=== PATIENT | female | born 1960 | race Caucasian/White ===

== ENCOUNTER 2017-04-26 11:41 | Inpatient (IN) | payer OTHER ==
[2017-04-26] VITALS (8 sets, daily range): BP systolic 103–183; BP diastolic 65–109; PULSE 70–104; RESP 15–18; TEMP 96.5–97.7; O2SAT 96–100
[~2017-04-26 11:41] MED LIST: DARV PO; ROSU40 PO; Z.0.NO CURRENT MEDS
[2017-04-26] MEDS ORDERED: MORPHINE SULFATE 8 MG/ML INJ ONE (12:12)
[2017-04-26 12:32] LABS: AUTOMATED NEUTROPHIL # 3.5 TH/MM3 (1.8-7.7); BASOPHIL % 0.5 % (0.0-2.0); EOSINOPHIL # 0.2 TH/MM3 (0-0.4); HEMATOCRIT 42.5 % (35.0-46.0); HEMOGLOBIN 14.4 GM/DL (11.6-15.3); LYMPH % 42.3 % (9.0-44.0); LYMPHOCYTE # 3.1 TH/MM3 (1.0-4.8); MEAN CELL VOLUME 88.9 FL (80.0-100.0); MEAN CORPUSCULAR HEMOGLOBIN 30.2 PG (27.0-34.0); MEAN PLATELET VOLUME 7.5 FL (7.0-11.0); MONO % 7.8 % (0.0-8.0); MONOCYTE # 0.6 TH/MM3 (0-0.9); NEUT % 47.4 % (16.0-70.0); PLATELET COUNT 245 TH/MM3 (150-450); RED BLOOD COUNT 4.78 MIL/MM3 (4.00-5.30); RED CELL DISTRIBUTION WIDTH 13.6 % (11.6-17.2); WHITE BLOOD COUNT 7.4 TH/MM3 (4.0-11.0)
[2017-04-26] MEDS ORDERED: IOHEXOL 350 MG/ML 10 ML VIAL (for RAD DIAG) IVCONTRAST ONE (12:40)
[2017-04-26 12:41] LABS: INTERNATIONAL NORMALIZED RATIO 0.9 RATIO; PROTHROMBIN TIME - PATIENT 9.4 SEC (9.8-11.6)
--- NOTE | 2017-04-26 12:53 | RADRPT ---
EXAM DATE/TIME: 04/26/2017 12:28 [facility] COMPARISON: No previous studies available for comparison. INDICATIONS : Trauma alert, fell through a boat. RADIATION DOSE: 49.50 CTDIvol (mGy) MEDICAL HISTORY : Non-responsive. SURGICAL HISTORY : Non-responsive. ENCOUNTER: Initial ACUITY: 1 day PAIN SCALE: Non-responsive LOCATION: cranial TECHNIQUE: Multiple contiguous axial images were obtained of the head. Using automated exposure control and adj ustment of the mA and/or kV according to patient size, radiation dose was kept as low as reasonably a chievable to obtain optimal diagnostic quality images. DICOM format image data is available electro nically for review and comparison. FINDINGS: CEREBRUM: The ventricles are normal for age. No evidence of midline shift, mass lesion, hemorrhage or acute in farction. No extra-axial fluid collections are seen. POSTERIOR FOSSA: The cerebellum and brainstem are intact. The 4th ventricle is midline. The cerebellopontine angle i s unremarkable. EXTRACRANIAL: The visualized portion of the orbits is intact. SKULL: The calvaria is intact. No evidence of skull fracture. CONCLUSION: 1. No acute intracranial abnormalities. Kristian Damon MD on April 26, 2017 at 12:51 Board Certified Radiologist. This report was verified electronically.
--- NOTE | 2017-04-26 12:55 | RADRPT ---
EXAM DATE/TIME: 04/26/2017 12:28 [facility] COMPARISON: No previous studies available for comparison. INDICATIONS : Trauma alert, fell through a boat. RADIATION DOSE: 15.74 CTDIvol (mGy) MEDICAL HISTORY : Non-responsive. SURGICAL HISTORY : Non-responsive. ENCOUNTER: Initial ACUITY: 1 day PAIN SCALE: Non-responsive LOCATION: neck TECHNIQUE: Volumetric scanning of the cervical spine was performed. Multiplanar reconstructions in the sagittal, coronal and oblique axial planes were performed. Using automated exposure control and adjustment o f the mA and/or kV according to patient size, radiation dose was kept as low as reasonably achievable to obtain optimal diagnostic quality images. DICOM format image data is available electronically f or review and comparison. FINDINGS: No acute fracture. Minimal degenerative anterolisthesis of C4 on C5. Moderate degenerative disease. N o prevertebral soft tissue swelling. No significant canal stenosis. CONCLUSION: 1. No acute findings. Moderate degenerative change. Kristian Damon MD on April 26, 2017 at 12:52 Board Certified Radiologist. This report was verified electronically.
--- NOTE | 2017-04-26 12:57 | RADRPT ---
EXAM DATE/TIME: 04/26/2017 12:35 [facility] COMPARISON: No previous studies available for comparison. INDICATIONS : Trauma alert, fell through a boat. IV CONTRAST: 70 cc Omnipaque 350 (iohexol) IV ; Cumulative dose for multiple exams. ORAL CONTRAST: No oral contrast ingested. RADIATION DOSE: 15.50 CTDIvol (mGy) ; Combined studies - Thorax/Abdomen/Pelvis MEDICAL HISTORY : Non-responsive. SURGICAL HISTORY : Non-responsive. ENCOUNTER: Initial ACUITY: 1 day PAIN SCALE: Non-responsive LOCATION: upper quadrant TECHNIQUE: Volumetric scanning of the abdomen and pelvis was performed. Using automated exposure control and ad justment of the mA and/or kV according to patient size, radiation dose was kept as low as reasonably achievable to obtain optimal diagnostic quality images. DICOM format image data is available electro nically for review and comparison. FINDINGS: LOWER LUNGS: The visualized lower lungs are clear extensive calcified granuloma on the right.. LIVER: Homogeneous density without lesion. There is no dilation of the biliary tree. Previous cholecystecto my. SPLEEN: Normal size without lesion. PANCREAS: Within normal limits. KIDNEYS: Normal in size and shape. There is no mass, stone or hydronephrosis. ADRENAL GLANDS: Within normal limits. VASCULAR: There is no aortic aneurysm. BOWEL/MESENTERY: The stomach, small bowel, and colon demonstrate no acute abnormality. There is no free intraperitone al air or fluid. ABDOMINAL WALL: Within normal limits. RETROPERITONEUM: There is no lymphadenopathy. BLADDER: No wall thickening or mass. REPRODUCTIVE: Within normal limits. INGUINAL: There is no lymphadenopathy or hernia. MUSCULOSKELETAL: Within normal limits for patient age. CONCLUSION: 1. Negative for acute traumatic injury within the abdomen and pelvis. Small hiatal hernia. Cholecyste ctomy. Calcified granuloma right middle lobe. Kristian Damon MD on April 26, 2017 at 12:54 Board Certified Radiologist. This report was verified electronically.
--- NOTE | 2017-04-26 13:03 | RADRPT ---
EXAM DATE/TIME: 04/26/2017 12:35 [facility] COMPARISON: No previous studies available for comparison. INDICATIONS : Trauma alert, fell through a boat. IV CONTRAST: 70 cc Omnipaque 350 (iohexol) IV ; Cumulative dose for multiple exams. RADIATION DOSE: 15.50 CTDIvol (mGy) ; Combined studies - Thorax/Abdomen/Pelvis MEDICAL HISTORY : Non-responsive. SURGICAL HISTORY : Non-responsive. ENCOUNTER: Initial ACUITY: 1 day PAIN SCALE: Non-responsive LOCATION: chest TECHNIQUE: Volumetric scanning of the chest was performed. Using automated exposure control and adjustment of t he mA and/or kV according to patient size, radiation dose was kept as low as reasonably achievable to obtain optimal diagnostic quality images. DICOM format image data is available electronically for review and comparison. Follow-up recommendations for detected pulmonary nodules are based at a minimum on nodule size and pa tient risk factors according to Fleischner Society Guidelines. FINDINGS: Minimal dependent atelectasis in the lungs. Calcified granuloma in the right middle lobe. No pneumoth orax or pleural effusion. No acute bony abnormalities identified. No mediastinal hematoma. No adenopathy. No pericardial effusion. CONCLUSION: 1. No acute findings on thoracic CT. Calcified granuloma right middle lobe. Kristian Damon MD on April 26, 2017 at 12:58 Board Certified Radiologist. This report was verified electronically.
--- NOTE | 2017-04-26 13:04 | RADRPT ---
EXAM DATE/TIME: 04/26/2017 12:09 [facility] COMPARISON: No previous studies available for comparison. INDICATIONS : Trauma. Fall. MEDICAL HISTORY : None. SURGICAL HISTORY : None. ENCOUNTER: Initial ACUITY: 1 day PAIN SCORE: 6/10 LOCATION: Right hip FINDINGS: A single frontal view of the pelvis demonstrates no evidence of fracture. The bony pelvic ring is in tact. Bony mineralization is normal. The soft tissues are intact. CONCLUSION: 1. There is no evidence of acute fracture. Yoel Baez MD on April 26, 2017 at 13:02 Board Certified Radiologist. This report was verified electronically.
--- NOTE | 2017-04-26 13:04 | RADRPT ---
EXAM DATE/TIME: 04/26/2017 12:09 [facility] COMPARISON: No previous studies available for comparison. INDICATIONS : Trauma. Fall. MEDICAL HISTORY : None. SURGICAL HISTORY : None. ENCOUNTER: Initial ACUITY: 1 day PAIN SCORE: 5/10 LOCATION: Right hip FINDINGS: Two view examination of the right femur demonstrates no evidence of fracture or dislocation. Bony mi neralization is normal. The soft tissue structures are intact. CONCLUSION: 1. There is no evidence of acute fracture. Yoel Baez MD on April 26, 2017 at 13:01 Board Certified Radiologist. This report was verified electronically.
--- NOTE | 2017-04-26 13:05 | RADRPT ---
EXAM DATE/TIME: 04/26/2017 12:09 [facility] COMPARISON: No previous studies available for comparison. INDICATIONS : Trauma. Fall. MEDICAL HISTORY : None. SURGICAL HISTORY : None. ENCOUNTER: Initial ACUITY: 1 day PAIN SCORE: 5/10 LOCATION: Right leg FINDINGS: Examination of the tibia and fibula demonstrates no evidence of fracture or dislocation. Bone minera lization is normal. CONCLUSION: 1. There is no evidence of acute fracture. Yoel Baez MD on April 26, 2017 at 13:02 Board Certified Radiologist. This report was verified electronically.
--- NOTE | 2017-04-26 13:12 | RADRPT ---
EXAM DATE/TIME: 04/26/2017 12:09 [facility] COMPARISON: CT THORAX W CONTRAST, April 26, 2017, 12:35. INDICATIONS : Trauma. Fall. MEDICAL HISTORY : None. SURGICAL HISTORY : None. ENCOUNTER: Initial ACUITY: 1 day PAIN SCORE: 2/10 LOCATION: Bilateral chest FINDINGS: There is a calcified granuloma within the right lower lung field. The heart is normal. The pulmonary vascular pattern is normal. The lungs are clear. CONCLUSION: 1. No acute cardiopulmonary disease. 2. Calcified granuloma within the right lower lung field. Edgar Rand MD on April 26, 2017 at 13:08 Board Certified Radiologist. This report was verified electronically.
--- NOTE | 2017-04-26 13:16 | RADRPT ---
EXAM DATE/TIME: 04/26/2017 12:09 [facility] COMPARISON: No previous studies available for comparison. INDICATIONS : Trauma. Fall. MEDICAL HISTORY : None. SURGICAL HISTORY : None. ENCOUNTER: Initial ACUITY: 1 day PAIN SCORE: 5/10 LOCATION: Right leg FINDINGS: Single view right ankle partially obscured by splint shows no fracture. CONCLUSION: Limited no fracture or dislocation. Malcom Hernandez MD FACR on April 26, 2017 at 13:14 Board Certified Radiologist. This report was verified electronically.
--- NOTE | 2017-04-26 13:18 | RADRPT ---
EXAM DATE/TIME: 04/26/2017 12:35 [facility] COMPARISON: No previous studies available for comparison. INDICATIONS : Trauma alert, fell through a boat. IV CONTRAST: 70 cc Omnipaque 350 (iohexol) IV ; Cumulative dose for multiple exams. RADIATION DOSE: ; Reconstructed from previous dataset, no dose MEDICAL HISTORY : Non-responsive. SURGICAL HISTORY : Non-responsive. ENCOUNTER: Initial ACUITY: 1 day PAIN SCALE: Non-responsive LOCATION: Paraspinal TECHNIQUE: Volumetric scanning of the thoracic spine was performed. Multiplanar reconstructions in the sagittal, coronal and oblique axial planes were performed. Using automated exposure control a nd adjustment of the mA and/or kV according to patient size, radiation dose was kept as low as reason ably achievable to obtain optimal diagnostic quality images. DICOM format image data is available el ectronically for review and comparison. FINDINGS: The vertebral bodies of the thoracic spine are in normal alignment without evidence of subluxation. Vertebral body height is maintained. No fractures are seen. Mild scoliosis and degenerative changes are noted. T1-T2: Normal. T2-T3: The thecal sac has a normal diameter. No evidence of disc bulge or protrusion. T3-T4: The thecal sac has a normal diameter. No evidence of disc bulge or protrusion. T4-T5: The thecal sac has a normal diameter. No evidence of disc bulge or protrusion. T5-T6: The thecal sac has a normal diameter. No evidence of disc bulge or protrusion. T6-T7: The thecal sac has a normal diameter. No evidence of disc bulge or protrusion. T7-T8: The thecal sac has a normal diameter. No evidence of disc bulge or protrusion. T8-T9: The thecal sac has a normal diameter. No evidence of disc bulge or protrusion. T9-T10: The thecal sac has a normal diameter. No evidence of disc bulge or protrusion. T10-T11: The thecal sac has a normal diameter. No evidence of disc bulge or protrusion. T11-T12: The thecal sac has a normal diameter. No evidence of disc bulge or protrusion. T12-L1: The thecal sac has a normal diameter. No evidence of disc bulge or protrusion. CONCLUSION: 1. No acute fracture or subluxation. 2. Mild degenerative changes and scoliosis of the thoracic spine. Edgar Rand MD on April 26, 2017 at 13:14 Board Certified Radiologist. This report was verified electronically.
--- NOTE | 2017-04-26 13:25 | RADRPT ---
EXAM DATE/TIME: 04/26/2017 12:35 [facility] COMPARISON: No previous studies available for comparison. INDICATIONS : Trauma alert, fell through a boat. IV CONTRAST: 70 cc Omnipaque 350 (iohexol) IV ; Cumulative dose for multiple exams. RADIATION DOSE: ; Reconstructed from previous dataset, no dose MEDICAL HISTORY : Non-responsive. SURGICAL HISTORY : Non-responsive. ENCOUNTER: Initial ACUITY: 1 day PAIN SCALE: Non-responsive LOCATION: Paraspinal TECHNIQUE: Volumetric scanning of the lumbar spine was performed. Multiplanar reconstructions in the sagittal, coronal and oblique axial planes were performed. Using automated exposure control and adjustment of the mA and/or kV according to patient size, radiation dose was kept as low as reasonably achievable t o obtain optimal diagnostic quality images. DICOM format image data is available electronically for review and comparison. FINDINGS: There is a mild to moderate compression deformity involving the superior endplate of L3 and a mild co mpression from involving the superior endplate of L4 which are indeterminate in ages. MRI of the lumb ar spine would be more sensitive to rule out acute fracture of these vertebral bodies if clinical ind icated. Significant degenerative disc disease is noted at L4-5 and less severe degenerative disc dise ase is noted at L5-S1. Mild spinal stenosis is noted at L3-4. Left-sided laminotomy defects are noted at L4-5 and L5-S1. Moderate bilateral foraminal narrowing is noted at L5-S1 and mild bilateral esdras inal narrowing is noted at L4-5 and L3-4. Minimal scoliosis of the lumbar spine is noted. CONCLUSION: 1. Mild to moderate compression deformity involving the superior endplate of L3 and a mild compressio n from involving the superior endplate of L4 which are indeterminate in ages. MRI of the lumbar spine would be more sensitive to rule out acute fracture of these vertebral bodies if clinical indicated. 2. Mild spinal stenosis at L3-4. 3. Moderate bilateral foraminal narrowing at L5-S1 and mild bilateral foraminal narrowing at L4-5 and L3-4. 4. Degenerative disc disease L4-5 and to a lesser extent at L5-S1. 5. Minimal scoliosis of the lumbar spine. Edgar Rand MD on April 26, 2017 at 13:17 Board Certified Radiologist. This report was verified electronically.
--- NOTE | 2017-04-26 13:45 | PD ---
HPI Chief Complaint: Trauma (Alert) Time Seen by Provider: 12:00 Travel History International Travel<30 days: No Contact w/Intl Traveler<30days: No Traveled to known affect area: No History of Present Illness HPI 56-year-old woman, presents to the emergency department complaining of right sided pain tenderness or weakness after falling several both. She reports that she was working on a boat at her job when she stepped through a piece had been finished. She fell about 6 feet into the boat landing on her right side. She has severe pain from her right back all the way through her right leg. She is unable to move the right leg. She describes inability to feel the right leg. She's had previous back surgeries. She otherwise has been feeling generally well and healthy. Pain is been severe since onset, consistent, without other aggravating or alleviating factors. History Past Medical History Narrative Medical Hyperlipidemia Previous back surgery Social History Alcohol Use: No Tobacco Use: No Allergies-Medications (Allergen,Severity, Reaction): Coded Allergies: codeine (Verified Allergy, Mild, 04/26/17) Reported Meds & Prescriptions Reported Meds & Active Scripts Active No Active Prescriptions or Reported Medications Review of Systems Except as stated in HPI: all other systems reviewed are Neg Physical Exam Narrative GENERAL: 56 year-old woman, full spinal mobilization, appears uncomfortable nontoxic. SKIN: Focused skin assessment warm/dry. HEAD: Atraumatic. Normocephalic. EYES: Pupils equal and round. No scleral icterus. No injection or drainage. ENT: No nasal bleeding or discharge. Mucous membranes pink and moist. NECK: Trachea midline. No JVD. CARDIOVASCULAR: Regular rate and rhythm. No murmur appreciated. RESPIRATORY: No accessory muscle use. Clear to auscultation. Breath sounds equal bilaterally. GASTROINTESTINAL: Abdomen soft, non-tender, nondistended. Hepatic and splenic margins not palpable. MUSCULOSKELETAL: No obvious deformities. On back exam she has pain throughout the lumbar spine and thoracic spine. There is no step-offs deformities or ecchymosis or bruising. She has pain with any attempted range of motion of the entire right leg hip knee and ankle. There is pain to palpation about the knee and thigh. There is no ecchymosis bruising swelling or other deformity. She has palpable pulses distally. She describes significant decrease in sensation throughout the extremity in a nondermatomal distribution. She can wiggle the toes but has either too much weakness or pain to move the leg further. Left legs unremarkable. Upper extremities are unremarkable. She does have mild diffuse myalgia pain with any kind of palpation but no other obvious bony injuries. NEUROLOGICAL: Awake and alert. No obvious cranial nerve deficits. Motor grossly within normal limits. Normal speech. PSYCHIATRIC: Appropriate mood and affect; insight and judgment normal. Data Data Last Documented VS Vital Signs Date Time Temp Pulse Resp B/P (MAP) Pulse Ox O2 Delivery O2 Flow Rate FiO2 04/26/17 12:09 100 21 04/26/17 12:00 104 16 179/109 (132) Room Air Orders Orders Morphine Inj (Morphine Inj) (04/26/17 12:12) I-Stat Profile (04/26/17 12:23) I-Stat Creatinine (04/26/17 12:23) Complete Blood Count With Diff (04/26/17 12:23) Prothrombin Time / Inr (Pt) (04/26/17 12:23) Act Partial Throm Time (Ptt) (04/26/17 12:23) Type And Screen (04/26/17 12:23) Chest, Single Ap (04/26/17 12:23) Pelvis, Ap Only (Routine) (04/26/17 12:23) Ct Brain W/O Iv Contrast(Rout) (04/26/17 12:23) Ct Cerv Spine W/O Contrast (04/26/17 12:23) Ct Abd/Pel W Iv Contrast(Rout) (04/26/17 12:23) Ct Thorax/ Chest W Iv Contrast (04/26/17 12:23) Ct Thor Spine W Iv Contrast (04/26/17 12:23) Ct Lumb Spine W Iv Contrast (04/26/17 12:23) Iv Access Insert/Monitor (04/26/17 12:23) Ecg Monitoring (04/26/17 12:23) Oximetry (04/26/17 12:23) Oxygen Administration (04/26/17 12:23) Femur (Ap & Lat/2vws) (04/26/17 ) Iohexol 350 Inj (Omnipaque 350 Inj) (04/26/17 12:40) Tibia/Fibula, One View (04/26/17 ) Ankle, One View (04/26/17 ) Trauma Office Use Only (04/26/17 12:56) Admit Order (Ed Use Only) (04/26/17 ) Labs Laboratory Tests Test 04/26/17 12:11 White Blood Count 7.4 TH/MM3 Red Blood Count 4.78 MIL/MM3 Hemoglobin 14.4 GM/DL Bedside Hemoglobin 14.3 G/DL Hematocrit 42.5 % Bedside Hematocrit 42.0 % Mean Corpuscular Volume 88.9 FL Mean Corpuscular Hemoglobin 30.2 PG Mean Corpuscular Hemoglobin Concent 34.0 % Red Cell Distribution Width 13.6 % Platelet Count 245 TH/MM3 Mean Platelet Volume 7.5 FL Neutrophils (%) (Auto) 47.4 % Lymphocytes (%) (Auto) 42.3 % Monocytes (%) (Auto) 7.8 % Eosinophils (%) (Auto) 2.0 % Basophils (%) (Auto) 0.5 % Neutrophils # (Auto) 3.5 TH/MM3 Lymphocytes # (Auto) 3.1 TH/MM3 Monocytes # (Auto) 0.6 TH/MM3 Eosinophils # (Auto) 0.2 TH/MM3 Basophils # (Auto) 0.0 TH/MM3 CBC Comment DIFF FINAL Differential Comment Prothrombin Time 9.4 SEC Prothromb Time International Ratio 0.9 RATIO Activated Partial Thromboplast Time 24.2 SEC Bedside Sodium 141 MMOL/L Bedside Potassium 3.2 MMOL/L Bedside Chloride 106 MMOL/L Bedside Blood Urea Nitrogen 14 MG/DL Bedside Creatinine 0.5 MG/DL Bedside Glucose 102 MG/DL [facility] Medical Decision Making Medical Screen Exam Complete: Yes Emergency Medical Condition: Yes Interpretation(s) LABS: CBC unremarkable. Point of care Splenic or chemistries are unremarkable. INR 0.9 X-rays of the femur, tib-fib, ankle in the trauma bay were interpreted a by myself s unremarkable. X-rays of the chest and pelvis were interpreted by myself as unremarkable and the trauma bay. Head CT: Negative. C-spine CT: Negative. Chest CT: Negative Abdomen pelvis CT: Negative. Lumbar spine CT: Mild to moderate compression deformity involving the superior endplate of L3 and a mild compression from the Louise well for which are indeterminate ages. Mild spinal stenosis L3-L4. Moderate bilateral foraminal narrowing at L5-S1 and mild bilateral pulmonary L4-L5. Degenerative disc disease. Minimal scoliosis. Differential Diagnosis Head injury, neck injury, back injury, radiculopathy, leg injury, other Narrative Course Medical decision making 56-year-old woman, upgraded on arrival to level II trauma alert based on her numbness and inability to move her right leg. Initial imaging in the trauma bay does not show any obvious leg injuries. Concern for radicular injury. CT does show suggestion of an L-spine compression fracture, unclear if this is related to the leg or not. The leg does appear vascularly intact with good perfusion and pulses. She somewhat painful throughout from the fall. I spoke with Dr. Navarrete, agrees to admit the patient for observation and for MRI of her back. Diagnosis Primary Impression: Compression fx, lumbar spine Admitting Information Admitting Physician Requests: Observation Scripts No Active Prescriptions or Reported Meds Saroj Fuchs MD Apr 26, 2017 13:45
[2017-04-26] MEDS ORDERED: GADODIAMIDE PF 287 MG/ML 5 ML VIAL (for RAD MRI) IVCONTRAST ONE (13:52)
[2017-04-26] MEDS ORDERED: ENALAPRILAT 1.25 MG/ML VIAL IV PUSH PRN (14:15)
[2017-04-26] MEDS ORDERED: SODIUM CHLORIDE 0.9% FLUSH 10 ML FLUSH IV FLUSH PRN ×2 (14:15)
[2017-04-26] MEDS ORDERED: MAGNESIUM HYDROXIDE SUSP 30 ML CUP PO PRN (14:15)
[2017-04-26] MEDS ORDERED: MISCELLANEOUS NURSING INFORMATION XX SCH ×2 (14:15)
[2017-04-26] MEDS ORDERED: CHLORHEXIDINE GLUCONATE 2 % 1 PACK (2 CLOTHS) TOP PRN (14:15)
[2017-04-26] MEDS ORDERED: KETOROLAC TROMETHAMINE 30 MG/ML (IVP) VIAL IVP PRN (14:15)
--- NOTE | 2017-04-26 14:16 | HHI.HP ---
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 She immediately developed numbness and tingling in her right lower extremity, was unable to ambulate and had lower back pain. She was brought in and underwent a full emergency department workup for an L3-L4 compression fracture was found. Review of Systems Constitutional: DENIES: Diaphoretic episodes, Fatigue, Fever, Weight gain, Weight loss, Chills, Dizziness, Change in appetite, Night Sweats Endocrine: DENIES: Abnorml menstrual pattern, Heat/cold intolerance, Polydipsia , Polyuria, Polyphagia Ears, nose, mouth, throat: DENIES: Tinnitus, Hearing loss, Vertigo, Nasal discharge, Oral lesions, Throat pain, Hoarseness, Ear Pain, Running Nose, Epistaxis, Sinus Pain, Toothache, Odynophagia Respiratory: DENIES: Apneas, Cough, Snoring, Wheezing, Hemoptysis, Sputum production, Shortness of breath Cardiovascular: DENIES: Chest pain, Palpitations, Syncope, Dyspnea on Exertion , PND, Lower Extremity Edema, Orthopnea, Claudication Gastrointestinal: COMPLAINS OF: Abdominal pain (mild epigastric), DENIES: Black stools, Bloody stools, Constipation, Diarrhea, Nausea, Vomiting, Difficulty Swallowing, Anorexia Genitourinary: DENIES: Abnormal vaginal bleeding, Dysmenorrhea, Dyspareunia, Sexual dysfunction, Urinary frequency, Urinary incontinence, Urgency, Hematuria , Dysuria, Nocturia, Vaginal discharge Musculoskeletal: COMPLAINS OF: Joint pain (right hip), Back pain (lumbar) Integumentary: DENIES: Abnormal pigmentation, Pruritus, Rash, Nail changes, Breast masses, Breast skin changes, Nipple discharge Hematologic/lymphatic: DENIES: Bruising, Lymphadenopathy Immunologic/allergic: DENIES: Eczema, Urticaria Neurologic: COMPLAINS OF: Abnormal gait (unable to bear weight on her right leg ) Psychiatric: DENIES: Anxiety, Confusion, Mood changes, Depression, Hallucinations, Agitation, Suicidal Ideation, Homicidal Ideation, Delusions Past Family Social History Allergies: Coded Allergies: codeine (Verified Allergy, Mild, 04/26/17) Past Medical History Patient denies Past Surgical History Laparoscopic cholecystectomy Reported Medications Patient denies Family History Review not relevant Social History Denies alcohol tobacco or drug use Physical Exam Vital Signs Vital Signs Date Time Temp Pulse Resp B/P (MAP) Pulse Ox O2 Delivery O2 Flow Rate FiO2 04/26/17 12:09 100 21 04/26/17 12:00 104 16 179/109 (132) 98 Room Air 04/26/17 11:50 104 18 183/102 (129) 98 Physical Exam Alert and oriented no acute distress Head is atraumatic normocephalic pupils equal round reactive to light extraocular movement intact sclerae nonicteric conjunctiva pink Neck soft, trachea midline no palpable nodes or masses Lungs clear to auscultation bilaterally, no tenderness or crepitus to palpation of her chest wall Heart regular rate and rhythm Abdomen soft, mild epigastric tenderness to palpation no peritonitis Pelvis stable tender to the right hip on palpation Femoral pulses are palpable bilaterally, no clubbing cyanosis or edema Dorsalis pedis pulses palpable bilaterally Skin is warm Cranial nerves II through XII appear grossly intact, she has no focal neurologic deficit Mood and affect are appropriate Laboratory Laboratory Tests Test 04/26/17 12:11 White Blood Count 7.4 Red Blood Count 4.78 Hemoglobin 14.4 Bedside Hemoglobin 14.3 Hematocrit 42.5 Bedside Hematocrit 42.0 Mean Corpuscular Volume 88.9 Mean Corpuscular Hemoglobin 30.2 Mean Corpuscular Hemoglobin Concent 34.0 Red Cell Distribution Width 13.6 Platelet Count 245 Mean Platelet Volume 7.5 Neutrophils (%) (Auto) 47.4 Lymphocytes (%) (Auto) 42.3 Monocytes (%) (Auto) 7.8 Eosinophils (%) (Auto) 2.0 Basophils (%) (Auto) 0.5 Neutrophils # (Auto) 3.5 Lymphocytes # (Auto) 3.1 Monocytes # (Auto) 0.6 Eosinophils # (Auto) 0.2 Basophils # (Auto) 0.0 CBC Comment DIFF FINAL Differential Comment Prothrombin Time 9.4 Prothromb Time International Ratio 0.9 Activated Partial Thromboplast Time 24.2 Bedside Sodium 141 Bedside Potassium 3.2 Bedside Chloride 106 Bedside Blood Urea Nitrogen 14 Bedside Creatinine 0.5 Bedside Glucose 102 Result Diagram: 04/26/17 1211 Imaging Last 24 hours Impressions Thoracic Spine CT 04/26/171222 Signed Impressions: Service Date/Time: Wednesday, April 26, 2017 12:35 - CONCLUSION: 1. No acute fracture or subluxation. 2. Mild degenerative changes and scoliosis of the thoracic spine. Edgar Rand MD Pelvis X-Ray 04/26/171222 Signed Impressions: Service Date/Time: Wednesday, April 26, 2017 12:09 - CONCLUSION: 1. There is no evidence of acute fracture. Yoel Baez MD Lumbar Spine CT 04/26/171222 Signed Impressions: Service Date/Time: Wednesday, April 26, 2017 12:35 - CONCLUSION: 1. Mild to moderate compression deformity involving the superior endplate of L3 and a mild compression from involving the superior endplate of L4 which are indeterminate in ages. MRI of the lumbar spine would be more sensitive to rule out acute fracture of these vertebral bodies if clinical indicated. 2. Mild spinal stenosis at L3-4. 3. Moderate bilateral foraminal narrowing at L5-S1 and mild bilateral foraminal narrowing at L4-5 and L3-4. 4. Degenerative disc disease L4-5 and to a lesser extent at L5-S1. 5. Minimal scoliosis of the lumbar spine. Edgar Rand MD Head CT 04/26/171222 Signed Impressions: Service Date/Time: Wednesday, April 26, 2017 12:28 - CONCLUSION: 1. No acute intracranial abnormalities. Kristian Damon MD Chest X-Ray 04/26/171222 Signed Impressions: Service Date/Time: Wednesday, April 26, 2017 12:09 - CONCLUSION: 1. No acute cardiopulmonary disease. 2. Calcified granuloma within the right lower lung field. Edgar Rand MD Chest CT 04/26/171222 Signed Impressions: Service Date/Time: Wednesday, April 26, 2017 12:35 - CONCLUSION: 1. No acute findings on thoracic CT. Calcified granuloma right middle lobe. Kristian Damon MD Cervical Spine CT 04/26/171222 Signed Impressions: Service Date/Time: Wednesday, April 26, 2017 12:28 - CONCLUSION: 1. No acute findings. Moderate degenerative change. Kristian Damon MD Abdomen/Pelvis CT 04/26/171222 Signed Impressions: Service Date/Time: Wednesday, April 26, 2017 12:35 - CONCLUSION: 1. Negative for acute traumatic injury within the abdomen and pelvis. Small hiatal hernia. Cholecystectomy. Calcified granuloma right middle lobe. Kristian Damon MD Tibia/Fibula X-Ray 04/26/17 0000 Signed Impressions: Service Date/Time: Wednesday, April 26, 2017 12:09 - CONCLUSION: 1. There is no evidence of acute fracture. Yoel Baez MD Femur X-Ray 04/26/17 0000 Signed Impressions: Service Date/Time: Wednesday, April 26, 2017 12:09 - CONCLUSION: 1. There is no evidence of acute fracture. Yoel Baez MD Ankle X-Ray 04/26/17 0000 Signed Impressions: Service Date/Time: Wednesday, April 26, 2017 12:09 - CONCLUSION: Limited no fracture or dislocation. Malcom Hernandez MD FACR Capsteviei VTE Risk Assessment Caprini VTE Risk Assessment: Mod/High Risk (score >= 2) Caprini Risk Assessment Model Point Value = 1 Point Value = 2 Point Value = 3 Point Value = 5 Age 41-60 Minor surgery BMI > 25 kg/m2 Swollen legs Varicose veins or History of unexplained or recurrent spontaneous Oral contraceptives or hormone replacement Sepsis (< 1 month) Serious lung disease, including pneumonia (< 1 month) Abnormal pulmonary function Acute myocardial infarction Congestive heart failure (< 1 month) History of inflammatory bowel disease Medical patient at bed rest Age 61-74 Arthroscopic surgery Major open surgery (> 45 min) Laparoscopic surgery (> 45 min) Malignancy Confined to bed (> 72 hours) Immobilizing plaster cast Central venous access Age >= 75 History of VTE Family history of VTE Factor V Leiden Prothrombin [id number] Lupus anticoagulant Anticardiolipin antibodies Elevated serum homocysteine Heparin-induced thrombocytopenia Other congenital or acquired thrombophilia Stroke (< 1 month) Elective arthroplasty Hip, pelvis, or leg fracture Acute spinal cord injury (< 1 month) Prophylaxis Regimen Total Risk Factor Score Risk Level Prophylaxis Regimen 0-1 Low Early ambulation 2 Moderate Order ONE of the following: *Sequential Compression Device (SCD) *Heparin 5000 units SQ BID 3-4 Higher Order ONE of the following medications: *Heparin 5000 units SQ TID *Enoxaparin/Lovenox 40 mg SQ daily (WT < 150 kg, CrCl > 30 mL/min) *Enoxaparin/Lovenox 30 mg SQ daily (WT < 150 kg, CrCl > 10-29 mL/min) *Enoxaparin/Lovenox 30 mg SQ BID (WT < 150 kg, CrCl > 30 mL/min) AND/OR *Sequential Compression Device (SCD) 5 or more Highest Order ONE of the following medications: *Heparin 5000 units SQ TID (Preferred with Epidurals) *Enoxaparin/Lovenox 40 mg SQ daily (WT < 150 kg, CrCl > 30 mL/min) *Enoxaparin/Lovenox 30 mg SQ daily (WT < 150 kg, CrCl > 10-29 mL/min) *Enoxaparin/Lovenox 30 mg SQ BID (WT < 150 kg, CrCl > 30 mL/min) AND *Sequential Compression Device (SCD) Assessment and Plan Assessment and Plan Lumbar compression fractures of L3 and L4 following 6-8 foot fall from standing Admit to the trauma service with a neurosurgical consult MRI of lumbar spine as well as right hip due to pain and inability to bear weight Oxycodone for pain with Toradol for breakthrough Aggressive pulmonary toilet Kunal Navarrete MD Apr 26, 2017 14:16
[2017-04-26] MEDS ORDERED: LORazepam 2 MG/ML VIAL IV PUSH ONE (14:45)
--- NOTE | 2017-04-26 14:53 | PD.CONS ---
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 She immediately developed severe back pain as well as numbness and tingling in her right lower extremity. She was initially unable to ambulate due to severe low back pain. No loss of consciousness. No seizure activity. No tongue biting. No incontinence of stool or urine She was brought in and underwent a full emergency department workup for an L3-L4 compression fracture. She denies any focal motor weakness. She denies any sensory loss. She denies any incontinence or stool or urine. Neurosurgical consultation was requested Physical Exam Vital Signs Vital Signs Date Time Temp Pulse Resp B/P (MAP) Pulse Ox O2 Delivery O2 Flow Rate FiO2 04/26/17 12:09 100 21 04/26/17 12:00 104 16 179/109 (132) 98 Room Air 04/26/17 11:50 104 18 183/102 (129) 98 Physical Exam Alert and oriented no acute distress Head is atraumatic normocephalic pupils equal round reactive to light extraocular movement intact sclerae nonicteric conjunctiva pink Neck soft, trachea midline no palpable nodes or masses Lungs clear to auscultation bilaterally, no tenderness or crepitus to palpation of her chest wall Heart regular rate and rhythm Abdomen soft, mild epigastric tenderness to palpation no peritonitis Pelvis stable tender to the right hip on palpation Femoral pulses are palpable bilaterally, no clubbing cyanosis or edema Dorsalis pedis pulses palpable bilaterally Skin is warm Cranial nerves II through XII appear grossly intact, she has no focal neurologic deficit Mood and affect are appropriate Review of Systems Constitutional: DENIES: Diaphoretic episodes, Fatigue, Fever, Weight gain, Weight loss, Chills, Dizziness, Change in appetite, Night Sweats Endocrine: DENIES: Abnorml menstrual pattern, Heat/cold intolerance, Polydipsia , Polyuria, Polyphagia Ears, nose, mouth, throat: DENIES: Tinnitus, Hearing loss, Vertigo, Nasal discharge, Oral lesions, Throat pain, Hoarseness, Ear Pain, Running Nose, Epistaxis, Sinus Pain, Toothache, Odynophagia Respiratory: DENIES: Apneas, Cough, Snoring, Wheezing, Hemoptysis, Sputum production, Shortness of breath Cardiovascular: DENIES: Chest pain, Palpitations, Syncope, Dyspnea on Exertion , PND, Lower Extremity Edema, Orthopnea, Claudication Gastrointestinal: COMPLAINS OF: Abdominal pain (mild epigastric), DENIES: Black stools, Bloody stools, Constipation, Diarrhea, Nausea, Vomiting, Difficulty Swallowing, Anorexia Genitourinary: DENIES: Abnormal vaginal bleeding, Dysmenorrhea, Dyspareunia, Sexual dysfunction, Urinary frequency, Urinary incontinence, Urgency, Hematuria , Dysuria, Nocturia, Vaginal discharge Musculoskeletal: COMPLAINS OF: Joint pain (right hip), Back pain (lumbar) Integumentary: DENIES: Abnormal pigmentation, Pruritus, Rash, Nail changes, Breast masses, Breast skin changes, Nipple discharge Hematologic/lymphatic: DENIES: Bruising, Lymphadenopathy Immunologic/allergic: DENIES: Eczema, Urticaria Neurologic: COMPLAINS OF: Abnormal gait (unable to bear weight on her right leg ) Psychiatric: DENIES: Anxiety, Confusion, Mood changes, Depression, Hallucinations, Agitation, Suicidal Ideation, Homicidal Ideation, Delusions Past Family Social History Allergies: Coded Allergies: codeine (Verified Allergy, Mild, 04/26/17) Past Medical History denies Past Surgical History Lumbar laminectomy Laparoscopic cholecystectomy Reported Medications Non- Active Ordered Medications Current Medications Morphine Sulfate (Morphine Inj) 8 mg STK-MED ONCE .ROUTE ; Start 04/26/17 at 12: 12; Stop 04/26/17 at 12:13; Status DC Iohexol (Omnipaque 350 Inj) 70 ml STK-MED ONCE IVCONTRAST ; Start 04/26/17 at 12: 40; Stop 04/26/17 at 12:41; Status DC Sodium Chloride (NS Flush) 2 ml UNSCH PRN IV FLUSH FLUSH AFTER USING IV ACCESS ; Start 04/26/17 at 14:15 Oxycodone HCl (Roxicodone) 5 mg Q4H PRN PO PAIN SCALE 1 TO 5; Start 04/26/17 at 14:15 Oxycodone HCl (Roxicodone) 10 mg Q4H PRN PO PAIN SCALE 6 TO 10; Start 04/26/17 at 14:15 Ketorolac Tromethamine (Toradol Inj) 15 mg Q4H PRN IVP BREAKTHROUGH PAIN; Start 04/26/17 at 14:15; Stop 04/30/17 at 14:14 Enalaprilat (Vasotec Inj) 1.25 mg Q8H PRN IV PUSH SBP>180, DBP>95; Start at 14:15 Ondansetron HCl (Zofran Inj) 4 mg Q6H PRN IV PUSH NAUSEA OR VOMITING; Start 04/26/17 at 14:15 Enoxaparin Sodium (Lovenox Inj) 30 mg Q12H SQ ; Start 04/26/17 at 15:15; Status UNV Docusate Sodium (Colace) 100 mg BID PO ; Start 04/26/17 at 14:15; Status UNV Magnesium Hydroxide (Milk Of Magnesia Liq) 30 ml Q6H PRN PO CONSTIPATION; Start 04/26/17 at 14:15; Status UNV Miscellaneous Information 1 Q361D XX ; Start 04/26/17 at 14:15; Status UNV Chlorhexidine Gluconate (Chlorhexidine 2% Cloth) 3 pack Taper DAILY@04 TOP ; Start 04/27/17 at 04:00; Stop 04/23/18 at 03:59; Status UNV Chlorhexidine Gluconate (Chlorhexidine 2% Cloth) 3 pack UNSCH PRN TOP HYGIENIC CARE; Start 04/26/17 at 14:15; Status UNV Sodium Chloride (NS Flush) 2 ml UNSCH PRN IV FLUSH FLUSH AFTER USING IV ACCESS ; Start 04/26/17 at 14:15; Status UNV Miscellaneous Information 1 Q361D XX ; Start 04/26/17 at 14:15; Status UNV Chlorhexidine Gluconate (Chlorhexidine 2% Cloth) 3 pack Taper DAILY@04 TOP ; Start 04/27/17 at 04:00; Stop 04/23/18 at 03:59; Status UNV Lorazepam (Ativan Inj) 1 mg ONCE ONCE IV PUSH Last administered on 04/26/17at 14 :42; Start 04/26/17 at 14:45; Stop 04/26/17 at 14:46 Family History Her family history was reviewed. not relevant to this injury Social History She Denies alcohol, tobacco, or ilicit drug use Physical Exam Vital Signs Vital Signs Date Time Temp Pulse Resp B/P (MAP) Pulse Ox O2 Delivery O2 Flow Rate FiO2 04/26/17 12:09 100 21 04/26/17 12:00 104 16 179/109 (132) 98 Room Air 04/26/17 11:50 104 18 183/102 (129) 98 Physical Exam The patient is alert, awake and oriented to time, place and person. Speech is fluent. Higher cognitive functions are normal. Cranial nerve examination demonstrates the pupils to be equal, round, and reactive to light. Extra-ocular movements are intact. Facial motor and sensory function are normal and symmetrical. Gross hearing is intact, bilaterally. The uvula is midline and elevates symmetrically with the soft palate. Sternocleidomastoid and trapezius muscles have normal and symmetrical strength. Other cranial nerves are intact. Neck is soft and supple. Cervical spine has a full range of motion in anterior flexion, extension, lateral bending, and rotation without pain. There is no tenderness to palpation to the spinous processes or paraspinal muscles. Muscle testing reveals normal bulk and tone overall without rigidity, spasticity , fasciculations, or atrophy. Muscle strength is 5/5 in all muscle groups of both upper extremities including deltoid, biceps, triceps, brachioradialis, wrist extension and rental sales representative. In the lower extremities, strength is 5/5 in both iliopsoas, quadriceps, hamstrings, plantar flexion, dorsiflexion, and extensor hallicus longus. Sensory examination is intact to light touch and sharp/dull discrimination in both the upper and lower extremities, symmetrically. Deep tendon reflexes are 2+ and symmetrical in the biceps, triceps, and brachioradialis, bilaterally, in the upper extremities. In the lower extremities , the patellar and Achilles are 2+, bilaterally. There is a bilateral plantar flexion response. Hoffmanns sign is negative. There is no clonus or other abnormal reflexes noted. Cerebellar examination is intact to [id number] test, rapid rhythmic alternating motion. There is no dysmetria, dysdiadochokinesia, truncal ataxia, or tremor. Laboratory Laboratory Tests Test 04/26/17 12:11 White Blood Count 7.4 Red Blood Count 4.78 Hemoglobin 14.4 Bedside Hemoglobin 14.3 Hematocrit 42.5 Bedside Hematocrit 42.0 Mean Corpuscular Volume 88.9 Mean Corpuscular Hemoglobin 30.2 Mean Corpuscular Hemoglobin Concent 34.0 Red Cell Distribution Width 13.6 Platelet Count 245 Mean Platelet Volume 7.5 Neutrophils (%) (Auto) 47.4 Lymphocytes (%) (Auto) 42.3 Monocytes (%) (Auto) 7.8 Eosinophils (%) (Auto) 2.0 Basophils (%) (Auto) 0.5 Neutrophils # (Auto) 3.5 Lymphocytes # (Auto) 3.1 Monocytes # (Auto) 0.6 Eosinophils # (Auto) 0.2 Basophils # (Auto) 0.0 CBC Comment DIFF FINAL Differential Comment Prothrombin Time 9.4 Prothromb Time International Ratio 0.9 Activated Partial Thromboplast Time 24.2 Bedside Sodium 141 Bedside Potassium 3.2 Bedside Chloride 106 Bedside Blood Urea Nitrogen 14 Bedside Creatinine 0.5 Bedside Glucose 102 Result Diagram: 04/26/17 1211 Imaging Last 48 hours Impressions Thoracic Spine CT 04/26/17 1223 Signed Impressions: Service Date/Time: Wednesday, April 26, 2017 12:35 - CONCLUSION: 1. No acute fracture or subluxation. 2. Mild degenerative changes and scoliosis of the thoracic spine. Edgar Rand MD Pelvis X-Ray 04/26/17 1223 Signed Impressions: Service Date/Time: Wednesday, April 26, 2017 12:09 - CONCLUSION: 1. There is no evidence of acute fracture. Yoel Baez MD Lumbar Spine CT 04/26/17 1223 Signed Impressions: Service Date/Time: Wednesday, April 26, 2017 12:35 - CONCLUSION: 1. Mild to moderate compression deformity involving the superior endplate of L3 and a mild compression from involving the superior endplate of L4 which are indeterminate in ages. MRI of the lumbar spine would be more sensitive to rule out acute fracture of these vertebral bodies if clinical indicated. 2. Mild spinal stenosis at L3-4. 3. Moderate bilateral foraminal narrowing at L5-S1 and mild bilateral foraminal narrowing at L4-5 and L3-4. 4. Degenerative disc disease L4-5 and to a lesser extent at L5-S1. 5. Minimal scoliosis of the lumbar spine. Edgar Rand MD Head CT 04/26/17 1223 Signed Impressions: Service Date/Time: Wednesday, April 26, 2017 12:28 - CONCLUSION: 1. No acute intracranial abnormalities. Kristian Damon MD Chest X-Ray 04/26/17 1223 Signed Impressions: Service Date/Time: Wednesday, April 26, 2017 12:09 - CONCLUSION: 1. No acute cardiopulmonary disease. 2. Calcified granuloma within the right lower lung field. Edgar Rand MD Chest CT 04/26/17 1223 Signed Impressions: Service Date/Time: Wednesday, April 26, 2017 12:35 - CONCLUSION: 1. No acute findings on thoracic CT. Calcified granuloma right middle lobe. Kristian Damon MD Cervical Spine CT 04/26/17 1223 Signed Impressions: Service Date/Time: Wednesday, April 26, 2017 12:28 - CONCLUSION: 1. No acute findings. Moderate degenerative change. Kristian Damon MD Abdomen/Pelvis CT 04/26/17 1223 Signed Impressions: Service Date/Time: Wednesday, April 26, 2017 12:35 - CONCLUSION: 1. Negative for acute traumatic injury within the abdomen and pelvis. Small hiatal hernia. Cholecystectomy. Calcified granuloma right middle lobe. Kristian Damon MD Tibia/Fibula X-Ray 04/26/17 0000 Signed Impressions: Service Date/Time: Wednesday, April 26, 2017 12:09 - CONCLUSION: 1. There is no evidence of acute fracture. Yoel Baez MD Femur X-Ray 04/26/17 0000 Signed Impressions: Service Date/Time: Wednesday, April 26, 2017 12:09 - CONCLUSION: 1. There is no evidence of acute fracture. Yoel Baez MD Ankle X-Ray 04/26/17 0000 Signed Impressions: Service Date/Time: Wednesday, April 26, 2017 12:09 - CONCLUSION: Limited no fracture or dislocation. Malcom Hernandez MD FACR Assessment and Plan Assessment and Plan Septic Shock Reassessment Caprini VTE Risk Assessment Caprini VTE Risk Assessment Caprini Risk Assessment Model Point Value = 1 Point Value = 2 Point Value = 3 Point Value = 5 Age 41-60 Minor surgery BMI > 25 kg/m2 Swollen legs Varicose veins or History of unexplained or recurrent spontaneous Oral contraceptives or hormone replacement Sepsis (< 1 month) Serious lung disease, including pneumonia (< 1 month) Abnormal pulmonary function Acute myocardial infarction Congestive heart failure (< 1 month) History of inflammatory bowel disease Medical patient at bed rest Age 61-74 Arthroscopic surgery Major open surgery (> 45 min) Laparoscopic surgery (> 45 min) Malignancy Confined to bed (> 72 hours) Immobilizing plaster cast Central venous access Age >= 75 History of VTE Family history of VTE Factor V Leiden Prothrombin [id number] Lupus anticoagulant Anticardiolipin antibodies Elevated serum homocysteine Heparin-induced thrombocytopenia Other congenital or acquired thrombophilia Stroke (< 1 month) Elective arthroplasty Hip, pelvis, or leg fracture Acute spinal cord injury (< 1 month) Prophylaxis Regimen Total Risk Factor Score Risk Level Prophylaxis Regimen 0-1 Low Early ambulation 2 Moderate Order ONE of the following: *Sequential Compression Device (SCD) *Heparin 5000 units SQ BID 3-4 Higher Order ONE of the following medications: *Heparin 5000 units SQ TID *Enoxaparin/Lovenox 40 mg SQ daily (WT < 150 kg, CrCl > 30 mL/min) *Enoxaparin/Lovenox 30 mg SQ daily (WT < 150 kg, CrCl > 10-29 mL/min) *Enoxaparin/Lovenox 30 mg SQ BID (WT < 150 kg, CrCl > 30 mL/min) AND/OR *Sequential Compression Device (SCD) 5 or more Highest Order ONE of the following medications: *Heparin 5000 units SQ TID (Preferred with Epidurals) *Enoxaparin/Lovenox 40 mg SQ daily (WT < 150 kg, CrCl > 30 mL/min) *Enoxaparin/Lovenox 30 mg SQ daily (WT < 150 kg, CrCl > 10-29 mL/min) *Enoxaparin/Lovenox 30 mg SQ BID (WT < 150 kg, CrCl > 30 mL/min) AND *Sequential Compression Device (SCD) Attending Statement I reviewed her clinical and radiological studies. She suffers from severe low back pain and right lower extremity radiculopathy. Recommend MRI of the lumbar spine Pulmonary aggressive pulmonary toilet. Incentive spirometer. Electrolytes replacement per ICU protocol Endocrine. Diabetes. Monitor serial Acu checks and SSI as needed in detail PT/OT evaluation Nutrition. Oral diet Renal. monitor closely urine output, BUN and creatinine ID monitor for signs of infection Protonix for stress ulcer prophylaxis Ken hose and SCD's for DVT prophylaxis, - Further recommendations will be provided depending on the patient's clinical evaluation and follow up studies. William Coburn MD Apr 26, 2017 14:53
--- NOTE | 2017-04-26 15:40 | RADRPT ---
EXAM DATE/TIME: 04/26/2017 14:54 [facility] COMPARISON: No previous studies available for comparison. INDICATIONS : Right hip pain after fall. MEDICAL HISTORY : None. SURGICAL HISTORY : Hysterectomy. Cholecystectomy. Discectomy, lumbar. ENCOUNTER: Subsequent ACUITY: 1 day PAIN SCORE: 5/10 LOCATION: Right hip. TECHNIQUE: Multiplanar, multisequence MRI examination was performed without contrast. FINDINGS: BONE/CARTILAGE: Bone marrow signal is homogeneous. Articular cartilage signal is within normal limits. LABRUM: Within normal limits. MUSCLES/TENDONS: All of the visualized muscles and tendons are intact. MISCELLANEOUS: No evidence of joint effusion. CONCLUSION: Negative for fracture. Malcom Hernandez MD FACR on April 26, 2017 at 15:37 Board Certified Radiologist. This report was verified electronically.
--- NOTE | 2017-04-26 16:12 | RADRPT ---
EXAM DATE/TIME: 04/26/2017 14:54 [facility] COMPARISON: No previous studies available for comparison. INDICATIONS : Right hip pain after fall. CONTRAST: 12 cc Omniscan (gadodiamide) IV MEDICAL HISTORY : None. SURGICAL HISTORY : Hysterectomy. Cholecystectomy. Discectomy, lumbar. ENCOUNTER: Subsequent ACUITY: 1 day PAIN SCORE: 5/10 LOCATION: back. TECHNIQUE: Multiplanar multisequence MRI of the lumbar spine was performed with and without contrast. FINDINGS: Sagittal images demonstrate normal vertebral body alignment and curvature. No focal areas of marrow r eplacement are identified. The conus terminates normally. Axial images were performed from T12-L1 thr ough L5-S1. There are Modic type I changes at the L4-L5 disc space with Schmorl's node at L3 and L4. T12-L1: No significant abnormalities identified. L1-L2: No significant abnormalities identified. L2-L3: No significant abnormalities identified. L3-L4: There is broad-based annular bulge of disc. There is no significant spinal canal stenosis. The neural foramina are clear bilaterally. L4-L5: There is mild diffuse annular bulge of the disc. The neural foramina are clear bilaterally. There is no significant spinal canal stenosis. L5-S1: A central disc protrusion is present impinging on the thecal sac. There is mild facet arthritis bilat erally. There is moderate neural foraminal narrowing bilaterally. CONCLUSION: 1. Central disc protrusion at L5-S1 without stenosis. Moderate foraminal narrowing bilaterally 2. There is no evidence of acute fracture. Yoel Baez MD on April 26, 2017 at 15:59 Board Certified Radiologist. This report was verified electronically.
[2017-04-26] MEDS: DOCUSATE SODIUM 100 MG CAP PO SCH ×2 (16:49→20:10)
[2017-04-26] MEDS: ENOXAPARIN SODIUM 30 MG/0.3 ML SYRINGE SQ SCH (16:51)
[2017-04-26] MEDS: ONDANSETRON HCL 4 MG/2 ML VIAL IV PUSH PRN (18:01)
[2017-04-27 03:40] VITALS: BP 112/68; PULSE 65; RESP 17; TEMP 97.2; O2SAT 96
[2017-04-27] MEDS ORDERED: CHLORHEXIDINE GLUCONATE 2 % 1 PACK (2 CLOTHS) TOP SCH ×2 (04:00)
[2017-04-27] MEDS ORDERED: LACTULOSE SYRUP 20 GM/30 ML CUP PO PRN (07:00)
[2017-04-27 07:28] LABS: AUTOMATED NEUTROPHIL # 3.1 TH/MM3 (1.8-7.7); BASOPHIL % 0.3 % (0.0-2.0); EOSINOPHIL # 0.1 TH/MM3 (0-0.4); EOSINOPHIL % 1.9 % (0.0-4.0); HEMATOCRIT 37.6 % (35.0-46.0); HEMOGLOBIN 12.9 GM/DL (11.6-15.3); LYMPH % 43.1 % (9.0-44.0); LYMPHOCYTE # 2.9 TH/MM3 (1.0-4.8); MEAN CELL VOLUME 89.2 FL (80.0-100.0); MEAN CORPUSCULAR HEMOGLOBIN 30.5 PG (27.0-34.0); MEAN CORPUSCULAR HGB CONC 34.2 % (32.0-36.0); MEAN PLATELET VOLUME 7.9 FL (7.0-11.0); MONO % 7.8 % (0.0-8.0); MONOCYTE # 0.5 TH/MM3 (0-0.9); NEUT % 46.9 % (16.0-70.0); PLATELET COUNT 227 TH/MM3 (150-450); RED BLOOD COUNT 4.22 MIL/MM3 (4.00-5.30); RED CELL DISTRIBUTION WIDTH 13.6 % (11.6-17.2); WHITE BLOOD COUNT 6.7 TH/MM3 (4.0-11.0)
[2017-04-27 07:37] LABS: BICARBONATE 28.1 MEQ/L (21.0-32.0); CALCIUM 8.6 MG/DL (8.5-10.1); CREATININE 0.56 MG/DL (0.50-1.00)
[2017-04-27 08:00] VITALS: BP 128/85; PULSE 89; RESP 17; TEMP 95.9; O2SAT 97
[2017-04-27] MEDS ORDERED: DOCUSATE SODIUM 50 MG/SENNA 8.6 MG TAB PO SCH (09:00)
[2017-04-27] MEDS ORDERED: POLYETHYLENE GLYCOL 17 GM PKG PO SCH (09:00)
[2017-04-27] MEDS: ENOXAPARIN SODIUM 30 MG/0.3 ML SYRINGE SQ SCH (09:33)
[2017-04-27] MEDS: ONDANSETRON HCL 4 MG/2 ML VIAL IV PUSH PRN (10:52)
[2017-04-27 12:00] VITALS: BP 109/76; PULSE 83; RESP 17; TEMP 97.2; O2SAT 98
[2017-04-27] MEDS: IBUPROFEN 800 MG TAB PO SCH ×2 (12:30→17:39)
[2017-04-27] MEDS ORDERED: ACETAMINOPHEN 325 MG TAB PO PRN (12:30)
[2017-04-27] MEDS ORDERED: ACET325T15 PO (15:52)
[2017-04-27 16:00] VITALS: BP 116/63; PULSE 64; RESP 17; TEMP 97.1; O2SAT 98
--- NOTE | 2017-04-27 16:01 | HHI.DS ---
Discharge Summary Admission Date Apr 26, 2017 at 13:51 Discharge Date: Apr 27, 2017 Admitting Diagnosis compression fracture (1) Fall, initial encounter ICD Codes: W19.XXXA - Unspecified fall, initial encounter (2) Lumbar spondylosis ICD Codes: M47.816 - Spondylosis without myelopathy or radiculopathy, lumbar region Brief History S/P Trauma: Fall CBC/BMP: 04/27/17 0549 04/27/17 0549 Significant Findings Laboratory Tests Test 04/26/17 12:11 04/27/17 05:49 Prothrombin Time 9.4 SEC (9.8-11.6) Activated Partial Thromboplast Time 24.2 SEC (24.3-30.1) Bedside Potassium 3.2 MMOL/L (3.6-5.0) Bedside Creatinine 0.5 MG/DL (0.6-1.3) Imaging Last Impressions Thoracic Spine CT 04/26/17 1223 Signed Impressions: Service Date/Time: Wednesday, April 26, 2017 12:35 - CONCLUSION: 1. No acute fracture or subluxation. 2. Mild degenerative changes and scoliosis of the thoracic spine. Edgra Rand MD Pelvis X-Ray 04/26/17 1223 Signed Impressions: Service Date/Time: Wednesday, April 26, 2017 12:09 - CONCLUSION: 1. There is no evidence of acute fracture. Yoel Baez MD Lumbar Spine CT 04/26/17 1223 Signed Impressions: Service Date/Time: Wednesday, April 26, 2017 12:35 - CONCLUSION: 1. Mild to moderate compression deformity involving the superior endplate of L3 and a mild compression from involving the superior endplate of L4 which are indeterminate in ages. MRI of the lumbar spine would be more sensitive to rule out acute fracture of these vertebral bodies if clinical indicated. 2. Mild spinal stenosis at L3-4. 3. Moderate bilateral foraminal narrowing at L5-S1 and mild bilateral foraminal narrowing at L4-5 and L3-4. 4. Degenerative disc disease L4-5 and to a lesser extent at L5-S1. 5. Minimal scoliosis of the lumbar spine. Edgar Rand MD Head CT 04/26/17 1223 Signed Impressions: Service Date/Time: Wednesday, April 26, 2017 12:28 - CONCLUSION: 1. No acute intracranial abnormalities. Kristian Damon MD Chest X-Ray 04/26/17 1223 Signed Impressions: Service Date/Time: Wednesday, April 26, 2017 12:09 - CONCLUSION: 1. No acute cardiopulmonary disease. 2. Calcified granuloma within the right lower lung field. Edgar Rand MD Chest CT 04/26/17 1223 Signed Impressions: Service Date/Time: Wednesday, April 26, 2017 12:35 - CONCLUSION: 1. No acute findings on thoracic CT. Calcified granuloma right middle lobe. Kristian Damon MD Cervical Spine CT 04/26/17 1223 Signed Impressions: Service Date/Time: Wednesday, April 26, 2017 12:28 - CONCLUSION: 1. No acute findings. Moderate degenerative change. Kristian Damon MD Abdomen/Pelvis CT 04/26/171222 Signed Impressions: Service Date/Time: Wednesday, April 26, 2017 12:35 - CONCLUSION: 1. Negative for acute traumatic injury within the abdomen and pelvis. Small hiatal hernia. Cholecystectomy. Calcified granuloma right middle lobe. Kristian Damon MD Tibia/Fibula X-Ray 04/26/17 0000 Signed Impressions: Service Date/Time: Wednesday, April 26, 2017 12:09 - CONCLUSION: 1. There is no evidence of acute fracture. Yoel Baez MD Lumbar Spine MRI 04/26/17 0000 Signed Impressions: Service Date/Time: Wednesday, April 26, 2017 14:54 - CONCLUSION: 1. Central disc protrusion at L5-S1 without stenosis. Moderate foraminal narrowing bilaterally 2. There is no evidence of acute fracture. Yoel Baez MD Hip MRI 04/26/17 0000 Signed Impressions: Service Date/Time: Wednesday, April 26, 2017 14:54 - CONCLUSION: Negative for fracture. Malcom Hernandez MD FACR Femur X-Ray 04/26/17 0000 Signed Impressions: Service Date/Time: Wednesday, April 26, 2017 12:09 - CONCLUSION: 1. There is no evidence of acute fracture. Yoel Baez MD Ankle X-Ray 04/26/17 0000 Signed Impressions: Service Date/Time: Wednesday, April 26, 2017 12:09 - CONCLUSION: Limited no fracture or dislocation. Malcom Hernandez MD FACR PE at Discharge GENERAL: 56 year old well nourished female lying in bed. SKIN: Warm and dry. HEAD: Atraumatic. Normocephalic. EYES: Pupils equal and round. No scleral icterus. No injection or drainage. ENT: No nasal bleeding or discharge. Mucous membranes pink and moist. NECK: Trachea midline. No JVD. CARDIOVASCULAR: Regular rate and rhythm. RESPIRATORY: No accessory muscle use. Clear to auscultation. Breath sounds equal bilaterally. GASTROINTESTINAL: Abdomen soft, non-tender, nondistended. + BS MUSCULOSKELETAL: Extremities without clubbing, cyanosis, or edema. MAEW, + sensation, + perfusion NEUROLOGICAL: Awake and alert. Normal speech. 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 No LOC. Complains of paresthesias and inability to move to RLE. INJURIES: L3-L4 compression deformities PMHx: HLD, previous back sx Lumbar spondylosis Neurosurgery consulted and cleared for DC. D/W Nu Supportive care MRI Lumbar shows no evidence of acute fx WBAT Denies further paresthesias OOB- ko well with PT Pain controlled with Tylenol F/U with NS if radiculopathy persists or having increased pain RIGHT hip pain MRI RIGHT Hip negative for acute fx Supportive care Pain control F/U with PCP in 1 week Patient is clear from Trauma surgery standpoint to safely discharge home with her . Pt Condition on Discharge: Stable Discharge Disposition: Discharge Home Discharge Instructions DIET: Follow Instructions for: As Tolerated, No Restrictions Activities you can perform: Weight Bearing as Ko Activities to Avoid: Driving for 24 hrs, Lifting/Bending, Strenuous Activity Attending Statement The exam, history, and the medical decision-making described in the above note were completed with the assistance of the mid-level provider. I reviewed and agree with the findings presented. I attest that I had a [id number] encounter with the patient on the same day, and personally performed and documented my assessment and findings in the medical record. Allan Lucas Apr 27, 2017 16:01 Kunal Navarrete MD Apr 28, 2017 11:56
--- NOTE | 2017-04-27 16:11 | HHI.NSPN ---
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 She immediately developed severe back pain as well as numbness and tingling in her right lower extremity. She was initially unable to ambulate due to severe low back pain. No loss of consciousness. No seizure activity. No tongue biting. No incontinence of stool or urine She was brought in and underwent a full emergency department workup for an L3-L4 compression fracture. She denies any focal motor weakness. She denies any sensory loss. She denies any incontinence or stool or urine. Neurosurgical consultation was requested 04/27. Neurologically stable. Minimal Pain. No neurological deficits Labs, Micro, & Vital Signs Results Date Time Temp Pulse Resp B/P (MAP) Pulse Ox O2 Delivery O2 Flow Rate FiO2 04/27/17 12:00 97.2 83 17 109/76 (87) 98 04/27/17 08:00 95.9 89 17 128/85 (99) 97 04/27/17 03:40 97.2 65 17 112/68 (83) 96 04/26/17 23:50 97.7 70 18 103/65 (78) 96 04/26/17 20:15 96.5 82 18 109/78 (88) 97 04/26/17 16:28 95 15 146/89 (108) 99 Room Air 04/26/17 16:26 Constitutional Vital Signs Date Time Temp Pulse Resp B/P (MAP) Pulse Ox O2 Delivery O2 Flow Rate FiO2 04/27/17 12:00 97.2 83 17 109/76 (87) 98 04/27/17 08:00 95.9 89 17 128/85 (99) 97 04/27/17 03:40 97.2 65 17 112/68 (83) 96 04/26/17 23:50 97.7 70 18 103/65 (78) 96 04/26/17 20:15 96.5 82 18 109/78 (88) 97 04/26/17 16:28 95 15 146/89 (108) 99 Room Air 04/26/17 16:26 Physical Exam Ms Tan is alert, awake and oriented to time, place and person. Speech is fluent. Higher cognitive functions are normal. Cranial nerve examination demonstrates the pupils to be equal, round, and reactive to light. Extra-ocular movements are intact. Facial motor and sensory function are normal and symmetrical. Gross hearing is intact, bilaterally. The uvula is midline and elevates symmetrically with the soft palate. Sternocleidomastoid and trapezius muscles have normal and symmetrical strength. Other cranial nerves are intact. Neck is soft and supple. Cervical spine has a full range of motion in anterior flexion, extension, lateral bending, and rotation without pain. There is no tenderness to palpation to the spinous processes or paraspinal muscles. Muscle testing reveals normal bulk and tone overall without rigidity, spasticity , fasciculations, or atrophy. Muscle strength is 5/5 in all muscle groups of both upper extremities including deltoid, biceps, triceps, brachioradialis, wrist extension and director quality systems. In the lower extremities, strength is 5/5 in both iliopsoas, quadriceps, hamstrings, plantar flexion, dorsiflexion, and extensor hallicus longus. Sensory examination is intact to light touch and sharp/dull discrimination in both the upper and lower extremities, symmetrically. Deep tendon reflexes are 2+ and symmetrical in the biceps, triceps, and brachioradialis, bilaterally, in the upper extremities. In the lower extremities , the patellar and Achilles are 2+, bilaterally. There is a bilateral plantar flexion response. Hoffmanns sign is negative. There is no clonus or other abnormal reflexes noted. Cerebellar examination is intact to [id number] test, rapid rhythmic alternating motion. There is no dysmetria, dysdiadochokinesia, truncal ataxia, or tremor. Medications Current Medications Current Medications Morphine Sulfate (Morphine Inj) 8 mg STK-MED ONCE .ROUTE ; Start 04/26/17 at 12: 12; Stop 04/26/17 at 12:13; Status DC Iohexol (Omnipaque 350 Inj) 70 ml STK-MED ONCE IVCONTRAST ; Start 04/26/17 at 12: 40; Stop 04/26/17 at 12:41; Status DC Sodium Chloride (NS Flush) 2 ml UNSCH PRN IV FLUSH FLUSH AFTER USING IV ACCESS Last administered on 04/26/17at 20:11; Start 04/26/17 at 14:15; Stop 04/27/17 at 18: 02; Status DC Oxycodone HCl (Roxicodone) 5 mg Q4H PRN PO PAIN SCALE 1 TO 5 Last administered on 04/27/17at 06:46; Start 04/26/17 at 14:15; Stop 04/27/17 at 12:32; Status DC Oxycodone HCl (Roxicodone) 10 mg Q4H PRN PO PAIN SCALE 6 TO 10 Last administered on 04/26/17at 20:14; Start 04/26/17 at 14:15; Stop 04/27/17 at 12:32; Status DC Ketorolac Tromethamine (Toradol Inj) 15 mg Q4H PRN IVP BREAKTHROUGH PAIN; Start 04/26/17 at 14:15; Stop 04/27/17 at 12:32; Status DC Enalaprilat (Vasotec Inj) 1.25 mg Q8H PRN IV PUSH SBP>180, DBP>95; Start at 14:15; Stop 04/27/17 at 18:02; Status DC Ondansetron HCl (Zofran Inj) 4 mg Q6H PRN IV PUSH NAUSEA OR VOMITING Last administered on 04/27/17at 10:52; Start 04/26/17 at 14:15; Stop 04/27/17 at 18:02; Status DC Enoxaparin Sodium (Lovenox Inj) 30 mg Q12HR SQ Last administered on 04/27/17at 09 :33; Start 04/26/17 at 15:15; Stop 04/27/17 at 18:02; Status DC Docusate Sodium (Colace) 100 mg BID PO Last administered on 04/26/17at 20:10; Start 04/26/17 at 14:15; Stop 04/27/17 at 07:03; Status DC Magnesium Hydroxide (Milk Of Magnesia Liq) 30 ml Q6H PRN PO CONSTIPATION; Start 04/26/17 at 14:15; Stop 04/27/17 at 07:03; Status DC Miscellaneous Information 1 Q361D XX ; Start 04/26/17 at 14:15; Stop 04/27/17 at 12:32; Status DC Chlorhexidine Gluconate (Chlorhexidine 2% Cloth) 3 pack Taper DAILY@04 TOP ; Start 04/27/17 at 04:00; Stop 04/27/17 at 12:32; Status DC Chlorhexidine Gluconate (Chlorhexidine 2% Cloth) 3 pack UNSCH PRN TOP HYGIENIC CARE; Start 04/26/17 at 14:15; Stop 04/27/17 at 12:32; Status DC Sodium Chloride (NS Flush) 2 ml UNSCH PRN IV FLUSH FLUSH AFTER USING IV ACCESS Last administered on 04/26/17at 18:01; Start 04/26/17 at 14:15; Stop 04/27/17 at 18: 02; Status DC Miscellaneous Information 1 Q361D XX ; Start 04/26/17 at 14:15; Stop 04/27/17 at 18:02; Status DC Chlorhexidine Gluconate (Chlorhexidine 2% Cloth) 3 pack Taper DAILY@04 TOP ; Start 04/27/17 at 04:00; Stop 04/27/17 at 12:32; Status DC Lorazepam (Ativan Inj) 1 mg ONCE ONCE IV PUSH Last administered on 04/26/17at 14 :42; Start 04/26/17 at 14:45; Stop 04/26/17 at 14:53; Status DC Gadodiamide (Omniscan Pf Inj) 12 ml STK-MED ONCE IVCONTRAST Last administered on 04/26/17at 13:52; Start 04/26/17 at 13:52; Stop 04/26/17 at 15:37; Status DC Senna/Docusate Sodium (Gema-Colace) 1 tab BID PO Last administered on 04/27/17at 09:33; Start 04/27/17 at 09:00; Stop 04/27/17 at 18:02; Status DC Lactulose (Lactulose Liq) 30 ml DAILY PRN PO No BM in 2 days; Start 04/27/17 at 07:00; Stop 04/27/17 at 18:02; Status DC Polyethylene Glycol (Miralax) 17 gm DAILY PO ; Start 04/27/17 at 09:00; Stop 04/27 at 18:02; Status DC Acetaminophen (Tylenol) 650 mg Q4H PRN PO Pain; Start 04/27/17 at 12:30; Stop at 18:02; Status DC Ibuprofen (Motrin) 800 mg Q6HR PO Last administered on 04/27/17at 17:39; Start at 12:30; Stop 04/27/17 at 18:02; Status DC Medical Decision Making [facility] Remarks Last 48 hours Impressions Thoracic Spine CT 04/26/171222 Signed Impressions: Service Date/Time: Wednesday, April 26, 2017 12:35 - CONCLUSION: 1. No acute fracture or subluxation. 2. Mild degenerative changes and scoliosis of the thoracic spine. Edgar Rand MD Pelvis X-Ray 04/26/171222 Signed Impressions: Service Date/Time: Wednesday, April 26, 2017 12:09 - CONCLUSION: 1. There is no evidence of acute fracture. Yoel Baez MD Lumbar Spine CT 04/26/171222 Signed Impressions: Service Date/Time: Wednesday, April 26, 2017 12:35 - CONCLUSION: 1. Mild to moderate compression deformity involving the superior endplate of L3 and a mild compression from involving the superior endplate of L4 which are indeterminate in ages. MRI of the lumbar spine would be more sensitive to rule out acute fracture of these vertebral bodies if clinical indicated. 2. Mild spinal stenosis at L3-4. 3. Moderate bilateral foraminal narrowing at L5-S1 and mild bilateral foraminal narrowing at L4-5 and L3-4. 4. Degenerative disc disease L4-5 and to a lesser extent at L5-S1. 5. Minimal scoliosis of the lumbar spine. Edagr Rand MD Head CT 04/26/171222 Signed Impressions: Service Date/Time: Wednesday, April 26, 2017 12:28 - CONCLUSION: 1. No acute intracranial abnormalities. Kristian Damon MD Chest X-Ray 04/26/171222 Signed Impressions: Service Date/Time: Wednesday, April 26, 2017 12:09 - CONCLUSION: 1. No acute cardiopulmonary disease. 2. Calcified granuloma within the right lower lung field. Edgar Rand MD Chest CT 04/26/171222 Signed Impressions: Service Date/Time: Wednesday, April 26, 2017 12:35 - CONCLUSION: 1. No acute findings on thoracic CT. Calcified granuloma right middle lobe. Kristian Damon MD Cervical Spine CT 04/26/17 1223 Signed Impressions: Service Date/Time: Wednesday, April 26, 2017 12:28 - CONCLUSION: 1. No acute findings. Moderate degenerative change. Kristian Damon MD Abdomen/Pelvis CT 04/26/17 1223 Signed Impressions: Service Date/Time: Wednesday, April 26, 2017 12:35 - CONCLUSION: 1. Negative for acute traumatic injury within the abdomen and pelvis. Small hiatal hernia. Cholecystectomy. Calcified granuloma right middle lobe. Kristian Damon MD Tibia/Fibula X-Ray 04/26/17 0000 Signed Impressions: Service Date/Time: Wednesday, April 26, 2017 12:09 - CONCLUSION: 1. There is no evidence of acute fracture. Yoel Baez MD Femur X-Ray 04/26/17 0000 Signed Impressions: Service Date/Time: Wednesday, April 26, 2017 12:09 - CONCLUSION: 1. There is no evidence of acute fracture. Yoel Baez MD Ankle X-Ray 04/26/17 0000 Signed Impressions: Service Date/Time: Wednesday, April 26, 2017 12:09 - CONCLUSION: Limited no fracture or dislocation. Malcom Hernandez MD FACR Plan Plan Remarks Caprini VTE Risk Assessment Caprini VTE Risk Assessment Caprini Risk Assessment Model Point Value = 1 Point Value = 2 Point Value = 3 Point Value = 5 Age 41-60 Minor surgery BMI > 25 kg/m2 Swollen legs Varicose veins or History of unexplained or recurrent spontaneous Oral contraceptives or hormone replacement Sepsis (< 1 month) Serious lung disease, including pneumonia (< 1 month) Abnormal pulmonary function Acute myocardial infarction Congestive heart failure (< 1 month) History of inflammatory bowel disease Medical patient at bed rest Age 61-74 Arthroscopic surgery Major open surgery (> 45 min) Laparoscopic surgery (> 45 min) Malignancy Confined to bed (> 72 hours) Immobilizing plaster cast Central venous access Age >= 75 History of VTE Family history of VTE Factor V Leiden Prothrombin [id number] Lupus anticoagulant Anticardiolipin antibodies Elevated serum homocysteine Heparin-induced thrombocytopenia Other congenital or acquired thrombophilia Stroke (< 1 month) Elective arthroplasty Hip, pelvis, or leg fracture Acute spinal cord injury (< 1 month) Prophylaxis Regimen Total Risk Factor Score Risk Level Prophylaxis Regimen 0-1 Low Early ambulation 2 Moderate Order ONE of the following: *Sequential Compression Device (SCD) *Heparin 5000 units SQ BID 3-4 Higher Order ONE of the following medications: *Heparin 5000 units SQ TID *Enoxaparin/Lovenox 40 mg SQ daily (WT < 150 kg, CrCl > 30 mL/min) *Enoxaparin/Lovenox 30 mg SQ daily (WT < 150 kg, CrCl > 10-29 mL/min) *Enoxaparin/Lovenox 30 mg SQ BID (WT < 150 kg, CrCl > 30 mL/min) AND/OR *Sequential Compression Device (SCD) 5 or more Highest Order ONE of the following medications: *Heparin 5000 units SQ TID (Preferred with Epidurals) *Enoxaparin/Lovenox 40 mg SQ daily (WT < 150 kg, CrCl > 30 mL/min) *Enoxaparin/Lovenox 30 mg SQ daily (WT < 150 kg, CrCl > 10-29 mL/min) *Enoxaparin/Lovenox 30 mg SQ BID (WT < 150 kg, CrCl > 30 mL/min) AND *Sequential Compression Device (SCD) Attending Statement I reviewed her clinical and radiological studies. Recommend MRI of the lumbar spine Pulmonary aggressive pulmonary toilet. Incentive spirometer. Electrolytes replacement per ICU protocol Endocrine. Diabetes. Monitor serial Acu checks and SSI as needed in detail PT/OT evaluation Nutrition. Oral diet Renal. monitor closely urine output, BUN and creatinine ID monitor for signs of infection Protonix for stress ulcer prophylaxis Ken hose and SCD's for DVT prophylaxis, - Cleared for discharge The exam, history, and the medical decision-making described in the above note were completed with the assistance of the mid-level provider. I reviewed and agree with the findings presented. I attest that I had a [id number] encounter with the patient on the same day, and personally performed and documented my assessment and findings in the medical record. William Coburn MD Apr 27, 2017 16:11
[2017-04-27] MEDS ORDERED: IBUP1TAB7 PO (17:00)
[2017-04-27] MEDS ORDERED: WALKER WHEELS/F1 MIS (17:00)
== END 2017-04-27 18:01 | disposition home or self-care (01) | DRG 552 ==
LOC: NEPI 11:41 → NEDA 13:51 → UNDOADMOB 13:51 → OBSVTOIN 14:15 → N06B 15:52 → NEDA 15:52 → UNDODISOB 04-27 18:01
PROVIDERS: ADMIT Surgery; ATTEND Surgery
DX: S32.030A Wedge compression fracture of third lumbar vertebra, initial encounter for closed fracture (principal); E11.9 Type 2 diabetes mellitus without complications; S32.040A Wedge compression fracture of fourth lumbar vertebra, initial encounter for closed fracture; W17.89XA Other fall from one level to another, initial encounter; M54.5 Low back pain; E78.5 Hyperlipidemia, unspecified; M47.26 Other spondylosis with radiculopathy, lumbar region; M25.551 Pain in right hip; Y92.62 Dock or shipyard as the place of occurrence of the external cause; Y99.0 Civilian activity done for income or pay
CPT/HCPCS: 70450; 71045; 71260; 72125; 72129; 72132; 72158; 72170; 73552; 73721; 74177; 80048; 82435; 82565; 82947; 84132; 84295; 84520; 85025; 85610; 85730; 86850; 86900; 86901; 99285; A9579; J1650; J2060; J2270; J2405; Q9967